=== PATIENT | female | born 1970 | race Caucasian/White ===

== ENCOUNTER 2018-07-19 22:36 | Inpatient (IN) | payer OTHER ==
[~2018-07-19] VITALS: Ht 171.4 cm; Wt 66.1 kg
[2018-07-20 01:03] LABS: HEMATOCRIT 33.2 % (36.0-47.0); HEMOGLOBIN 11.4 g/dl (12.0-15.5); MEAN CORPUSCULAR HEMOGLOBIN 31.8 pg (27.0-33.0); MEAN CORPUSCULAR HGB CONC 34.3 g/dl (32.0-36.5); MEAN CORPUSCULAR VOLUME 92.5 fl (80.0-96.0); PLATELET COUNT, AUTOMATED 200 10^3/uL (150-450); RED BLOOD COUNT 3.59 10^6/uL (4.00-5.40); WHITE BLOOD COUNT 6.5 10^3/uL (4.0-10.0)
[2018-07-20 01:36] LABS: ACETAMINOPHEN LEVEL < 2.0 UG/ML (10.0-30.0); ALBUMIN 3.1 GM/DL (3.2-5.2); ALT/SGPT 24 U/L (12-78); BILIRUBIN,DIRECT < 0.1 MG/DL (0.0-0.2); BILIRUBIN,TOTAL 0.2 MG/DL (0.2-1.0); BLOOD UREA NITROGEN 10 MG/DL (7-18); CALCIUM LEVEL 7.9 MG/DL (8.5-10.1); CARBON DIOXIDE LEVEL 24 MEQ/L (21-32); CHLORIDE LEVEL 107 MEQ/L (98-107); CREATININE FOR GFR 0.49 MG/DL (0.55-1.30); ETHYL ALCOHOL (ETHANOL) 0.079 % (0.000-0.010); GLOMERULAR FILTRATION RATE > 60.0 (>58); GLUCOSE, FASTING 105 MG/DL (70-100); POTASSIUM SERUM 3.1 MEQ/L (3.5-5.1); SALICYLATE LEVEL 3.1 MG/DL (5.0-30.0); SODIUM LEVEL 145 MEQ/L (136-145); TOTAL PROTEIN 6.7 GM/DL (6.4-8.2)
[2018-07-20 02:20] LABS: AMPHETAMINES LEVEL URINE NEGATIVE (NEGATIVE); BARBITURATES URINE NEGATIVE (NEGATIVE); BENZODIAZEPINES URINE NEGATIVE (NEGATIVE); CANNABINOIDS URINE NEGATIVE (NEGATIVE); COCAINE METABOLITE URINE NEGATIVE (NEGATIVE); METHADONE URINE NEGATIVE (NEGATIVE); OPIATES URINE NEGATIVE (NEGATIVE); PHENCYCLIDINE URINE NEGATIVE (NEGATIVE)
[2018-07-20] MEDS ORDERED: CALCIUM CARBONATE 500 MG CHEW U/D PO ONE (02:45)
[2018-07-20] MEDS ORDERED: POTASSIUM CHLORIDE 10 MEQ SR TABLET PO ONE (02:45)
[2018-07-20 04:44] LABS: FREE THYROXINE INDEX 2.6 % (1.3-4.8); T UPTAKE 30 % (30-39); THYROXINE (T4) 8.8 UG/DL (4.5-12.0)
[2018-07-20] MEDS ORDERED: OLANZapine ORAL DISINTEGRATING TAB 5MG PO PRN (13:45)
[2018-07-20] MEDS ORDERED: MOM 30ML SUSPENSION UDC PO PRN (13:45)
[2018-07-20] MEDS ORDERED: ACETAMINOPHEN TAB 650MG DOSE (2X325MG) PO PRN (13:45)
[2018-07-20] MEDS ORDERED: MAALOX 30 ML SUSP *UDC PO PRN (13:45)
[2018-07-20 15:23] VITALS: BP 138/94
--- NOTE | 2018-07-20 19:36 | ECGEPIP ---
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
[2018-07-21 06:47] VITALS: BP 139/81
--- NOTE | 2018-07-21 11:58 | HPEPDOC ---
General Date of Admission July 20, 2018 at 13:33 Date of Service: July 21, 2018 Attending Physician: GARETH MONDRAGON MD Chief Complaint The patient is a 48-year-old female admitted with a reason for visit of Depressive Disorder. History of Present Illness Patient is a 40-year-old female, past medical history significant for hypertension, hypothyroidism, GERD, nicotine dependence, depression, admitted to inpatient psychiatric unit on account of acute depression and suicidal ideation. Patient recently moved from [place] and has been unable to find a job in the area, subsequently started feeling worthless and suicidal. On assessment, she complains of joint pain but otherwise denies chest pain, shortness of breath, weakness, dizziness, abdominal pain, nausea, diarrhea. Home Medications No Active Prescriptions or Reported Meds Allergies Coded Allergies: No Known Allergies (Unverified , 07/19/18) Past Medical History Medical History Hypertension Hypothyroidism GERD Nicotine dependence Depression. Psoriasis Surgical History Vulvectomy LEEP Family History Family history significant for alcohol abuse Social History * Smoker: less than 1 pack/day Alcohol: occationally Drugs: denies A-FIB/CHADSVASC A-FIB History Current/History of A-Fib/PAF?: No Current PO Anticoag Therapy: No Review of Systems Other systems A 10 point pertinent review of systems was completed, negative except as stated in the history of presenting illness Physical Examination Other physical findings GENERAL: NAD SKIN : Psoriatic lesions to bilateral lower extremities, back HEENT: Atraumatic, normocephalic, PERRL, moist mucous membrane CARDIOVASCULAR: Regular rate and rhythm, S1S2, no JVD, no edema, distal pulses + and palpable RESP: CTAB, no accessory muscle use noted ABDOMEN: BS+ non distended non tender MS: kyphotic deformity NEURO: Alert and oriented x 3, CN2-12 grossly intact PSYCH: no anxiety or agitation, appropriate mood and affect. Vital Signs Vital Signs Date Time Temp Pulse Resp B/P (MAP) Pulse Ox O2 Delivery O2 Flow Rate FiO2 07/21/18 06:47 98.1 70 14 139/81 (100) 07/20/18 15:23 98 07/20/18 13:03 Room Air Assessment/Plan Hypertension -Start on lisinopril with monitoring of blood pressure per unit protocol Hypothyroidism -Patient reports hypothyroidism, but not on any medication at this time GERD -Start on proton pump inhibitor Psoriasis -Outpatient follow-up with primary care provider appropriate evaluation and management Suicidal ideation -Management by primary team Nicotine dependence -Management by primary team DVT prophylaxis -Patient is frequently ambulatory Plan / VTE VTE Prophylaxis Ordered?: No VTE Exclusion Mechanical Proph: Low Risk for VTE RENEE PALOMARES July 21, 2018 11:58
[2018-07-21] MEDS: LISINOPRIL 5 MG TAB PO SCH (14:38)
--- NOTE | 2018-07-21 15:39 | MHHPEPDOC ---
General Date Of Admission: July 19, 2018 Legal Status: 9.39 Chief Complaint "I feel depressed because I don't have a job". History of Present Illness HISTORY OF THE PRESENT ILLNESS: Patient is a 48 -year-old , female, who, according to Ed report: "Reason for Referral Pt self presents to ED c/o worsening depression/SI. Chief Complaint [facility], reports she moved to [facility] from [place] to be near family, has had worsening depression for past 6 months. PT states she has a Phd however has been unable to find employment since moving to [facility], also c/o financial px, fears her car will be repossessed soon, has little or no support, states "I'm just done". Pt admits to feeling hopeless and worthless, states "everything has gone to shit", is quite negative about the future, adds "I had things to do today and just couldn't, I give up". Pt reports feeling suicidal, denies any plan currently, admits to 2 prior psych admissions in [place] in past year for depression/SI. Pt denies HI/AH/VH, denies drug use, admits to occasional ETOH. PT c/o erratice sleep and poor concentration, low energy, appears disheveled, feels "humiliated" that she has had to turn to [facility] for assistance, is currently residing in [facility] Hotel.." Psychiatric Review of Systems Depression (2 or more weeks): depressed mood, insomnia/hypersomnia, feelings of worthlesness, decreased energy, difficulty concentrating, appetite changes (sometime she almost felt hungry all the time while she was in [place] and food was scarce), other (hopeless and helpless) Wanda (4 or more days of): irritable/elevated mood, grandiosity, talkativity, pressured, flight of ideas Psychosis: denies PTSD: denies Anxiety: gen/non-specific anxiety, situational anxiety, stressor related anxiety Anxiety/ 6 months or more of: restlessness, keyed up, difficulty concentrating, irritability, sleep disturbance Past Psychiatric History Previous Psychiatric Diagnosis: "Sort of". She says she has been told that she has a "baby bipolar' by one of her [facility] providers Previous Psychiatric Admissions: Yes, three months ago when she was in [place], [place] Suicide Attempts: Denies Psychiatric Follow-up: She didn't f/u after she was released from the hospital in House Psychiatric medications: Paxil Past Medical History Medical Problems GERD, HPV Head Injury: No Seizures: No Hospitalizations: Yes Surgeries: Yes (In 2015 she had a vulvectomy and in 1017 she had an ELEP) Family Medical/Psychiatric HX Medical Problems She thinks her father has some type of early dementia Psychiatric Disorders: Yes (She thinks her mother had some "bipolar or something", she would be screaming and yelling, she was an alcoholic and her father's mother was bipolar) Addiction: Yes (both parents were alcoholics and dad was a smoker) Suicide Attemps/Completions: No Addiction History nicotine, alcohol, other (she says that because she has no money, she hasno't bought alcohol or cigarettes) Social History Childhood: "It was OK, there were no serious problems". She grew up with her parents, went to school. she has a sister who is 6 years younger, she has an older borother and sister. She was bullied in [employer], she hated going to school. At that time they were in [place]. Abuse/Trauma: Bullied in school, mother as verbally abusive Current Living Situation: Lives at [facility] housing Education: She says she has a PHD Employment: Unemployed Social Support: Sister and brother in law Legal: Denies Marital: Was , got , didn't last long. she was 19 when she got to get out of the house. She has a child (female) and has a grandchild (thy live in [place]) Mental Status Examination General Appearance: unkempt, disheveled, ds/not appear stated age (looks older) Build: thin Demeanor: preoccupied Eye Contact: average Activity: anxious Behavior: cooperative, restless Speech: clear, spontaneous, other (talkative) Mood: depressed, anxious, irritable, hypomanic Affect: constricted, appropriate, congruent, anxious Thought Process: logical/linear, circumstantial, flight of ideas, depressed Thought Content (Delusions): grandiose, denies SI, HI, AVH Thought Content (Other): preoccupied, obsessional, ideas of reference Thought Content (Aggressive): none reported Perception (Hallucinations): none reported Perception (Other): none reported Cognition (Impairment of): none reported Cognition(Intelligence Est.): average Oriented: Awake, Alert, Oriented times three Insight: poor Judgment: Poor Psychosis: Denies Diagnoses 1. Unspecified mood disorder, r/o bipolar 2 disorder 2. R/O ETOH abuse A-FIB/CHADSVASC A-FIB History Current/History of A-Fib/PAF?: No Current PO Anticoag Therapy: No Age/Risk Factor Scoring CHADSVASC: CHADSVASC Response (Comments) Value Age Risk Factor Age < 65 years old 0 Gender Risk Factor Female 1 Hx of CHF No 0 Hx of HTN No 0 Hx of Stroke/TIA/or VTE No 0 Hx of Diabetes No 0 Hx of Vascular Disease No 0 Total 1 Treatment Treatment ordered: NONE Reason Anticoagulant not given: Not indicated/[id number] Assessment Patient is a little entitled, she is very talkative, she is circumstantial, she is impulsive, she came from [place] because "benefits are better here", she sya, but she didn't have a job in here or a place to live. She is jobless, she is about to lose her car, because she has no money to make the payments, she has been looking for a job and "they always tell me they have a lot of applicants and i want to know where are these people, did they get the job, why can't i get that job, I have a PhD...." She sems to have bipolar disorder. she says she has been told she was "a baby bipolar" by one of her VA doctors before. She says she has never been on amood stabilizer, only on paxil but once, she was given Abilify and it gave her 'horrible anxiety". She is worried about not being able to pay for this hospitalization and I explained she could be [facility] [place] provided they have beds available. Initial Treatment Plan 1. Patient was admitted on a [9.39] status. 2. Complete history was obtained. 3. With patients permission, family will be contacted and database will be expanded. 4. Patients medication regimen will be reviewed and changed accordingly. 5. Patient will be provided with protected environment. 6. Patient will be treated with individual, group, and milieu therapies. 7. Patient will receive supportive psych-education. 8. Discharge planning will commence immediately. 9. Outpatient follow-up treatment will be strongly recommended. 10. The initial treatment plan will focus initially on: * Depression. * Anxiety * Hypomania * Risk for suicide. * Substance abuse. ESTIMATED LENGTH OF STAY: 5-7 DAYS. TIME SPENT COUNSELING AND COORDINATING INITIAL CARE: 60 minutes. Vital Signs Vital Signs Date Time Temp Pulse Resp B/P (MAP) Pulse Ox O2 Delivery O2 Flow Rate FiO2 07/21/18 06:47 98.1 70 14 139/81 (100) 07/20/18 15:23 98 07/20/18 13:03 Room Air Medications No Active Prescriptions or Reported Meds Allergies Coded Allergies: No Known Allergies (Unverified , 07/19/18) CLARITA AGUILERA MD July 21, 2018 15:39
[2018-07-21] MEDS ORDERED: PILL CUTTER 1 EACH XX PRN (16:15)
[2018-07-21 18:11] VITALS: BP 125/73
[2018-07-21] MEDS ORDERED: QUEtiapine FUMARATE 50 MG TAB PO SCH (21:00)
[2018-07-22 08:25] VITALS: BP 107/76
[2018-07-22] MEDS: LISINOPRIL 5 MG TAB PO SCH (08:25)
[2018-07-22] MEDS ORDERED: PARoxetine 20 MG TAB PO SCH (09:00)
--- NOTE | 2018-07-22 13:13 | IPNPDOC ---
Subjective Date Seen The patient was seen on 07/22/18. Subjective Chief Complaint/HPI Patient is a 40-year-old female, past medical history significant for hypertension, hypothyroidism, GERD, nicotine dependence, depression, admitted to inpatient psychiatric unit on account of acute depression and suicidal ideation. Events since last encounter Has no complaints when seen this am. Denies chest pain, SOB, weakness, Objective Physical Examination Other physical findings SKIN : Warm, dry intact HEENT: Atraumatic, normocephalic, PERRL, moist mucous membrane CARDIOVASCULAR: Regular rate and rhythm, S1S2, no JVD, no edema, distal pulses + and palpable RESP: CTAB, no accessory muscle use noted ABDOMEN: BS+ non distended non tender MS: kyphosis NEURO: Alert and oriented x 3, CN2-12 grossly intact PSYCH: no anxiety or agitation, appropriate mood and affect. Assessment /Plan Assessment Hypertension -continue lisinopril at 2.5mg daily -blood pressure is controlled. Hypothyroidism -TSH elevated at 6.1 -O/P follow up with PCP for management -she will need a repeat TSH prior to initiation of therapy after acute issues stabilized. GERD -Start on proton pump inhibitor Psoriasis -Outpatient follow-up with primary care provider appropriate evaluation and management Suicidal ideation -Management by primary team Nicotine dependence -Management by primary team DVT prophylaxis -Patient is frequently ambulatory Plan/VTE VTE Prophylaxis Ordered?: No VTE Exclusion Mechanical Proph: Low Risk for VTE VS, I&O, 24H, Fishbone Vital Signs/I&O Vital Signs Date Time Temp Pulse Resp B/P (MAP) Pulse Ox O2 Delivery O2 Flow Rate FiO2 07/22/18 08:25 107/76 07/21/18 18:11 98.5 71 16 07/20/18 15:23 98 07/20/18 13:03 Room Air RENEE PALOMARES July 22, 2018 13:13
[2018-07-22 15:45] VITALS: BP 120/75
[2018-07-22] MEDS ORDERED: QUET5TAB PO (18:30)
[2018-07-22] MEDS ORDERED: PARO20TA3 PO (18:30)
[2018-07-23] MEDS ORDERED: LISINOPRIL *2.5 MG* TAB PO SCH (09:00)
--- NOTE | 2018-07-25 20:04 | MHDSPDOC ---
[facility] Discharge Summary Discharge Summary DATE OF ADMISSION: July 20, 2018 at 13:33 DATE OF DISCHARGE: July 22, 2018 at 19:15 DISCHARGE DIAGNOSES: 1. Bipolar 2 disorder 2. ETOH use disorder (in initial remission because she can't afford it) 3. Nicotine use disorder (in initial reemission for the above mentioned reason) REASON FOR ADMISSION: Chief Complaint "I feel depressed because I don't have a job". History of Present Illness HISTORY OF THE PRESENT ILLNESS: Patient is a 48 -year-old , female, who, according to Ed report: "Reason for Referral Pt self presents to ED c/o worsening depression/SI. Chief Complaint Pt brings self to ED [facility], reports she moved to [facility] from [place] to be near family, has had worsening depression for past 6 months. PT states she has a Phd however has been unable to find employment since moving to [facility], also c/o financial px, fears her car will be repossessed soon, has little or no support, states "I'm just done". Pt admits to feeling hopeless and worthless, states "everything has gone to shit", is quite negative about the future, adds "I had things to do today and just couldn't, I give up". Pt reports feeling suicidal, denies any plan currently, admits to 2 prior psych admissions in [place] in past year for depression/SI. Pt denies HI/AH/VH, denies drug use, admits to occasional ETOH. PT c/o erratice sleep and poor concentration, low energy, appears disheveled, feels "humiliated" that she has had to turn to [facility] for assistance, is currently residing in [facility].." CONSULTANTS INVOLVED: None TREATMENT AND PROGRESS ON THE UNIT : The patient reported feeling frustrated bec ause she didn't have a job in this are, she had been placed at a [facility] motel and she she was very worried because she didn't have the money to make the payments for her car. She said she had moved to this area from [place] because she thought that there were more benefits in this area. She had lost her job in [place] and her father had been ill and had to be placed him at a [facility]. She has a sister and a brother in law who live nearby but they have limited resources, slthough they have been emotionally supportive. She came to the hospital, but sh could have gone to [facility], however she felt when could not drive because she has no money for the gas. She felt it could be better for her to leave because she felt she was wasting her time her cr while at the Hospital because she needed to go to the [employer], since she needed to get a job. She wondered why she couldn't get a job in here because she had a PhD although she was very vague when it came to answer what had she mastered her PhD. She was very talkative and very circumstantial. She had a sense of entitlement, when she felt that she was humiliated because she was living at a [facility] apartment and almost immediately she said that she was thankful to have a place to be safe. She said she had been working at the equivalent of [facility] in [place]. I had spoken with her about discharging her on [place] but she thought that we could discharge her ffrom [facility] with medications and after that, she would go to the [facility] [place] and she was told that she could do that on her own, go to [facility], but once discharged from here, she could not be transferred over there (not from [facility]), She was torn beteen being discharged or going to [place] and finally she decided to go to [place] because she said she was not going to be able to afford her medications, to pay them from her own pocket, so, maybe if she went to the [facility] in [place], she could be discharged from there sith scrips for her medications. Late in the afternoon, this card writer hand read on mission planner's note that she had not been accepted, but it was Wednesday and she could not be without medications until Wednesday, when she could go to the VA and request an appointment and maybe get her medications. she was upset and requested to be discharged no matter what because she was becoming more anxious at the Unit because she needed to go out and try to get a job. This card writer hand got in touch with Discharge Planners who reported that she could be discharged and she could have her appointments in [facility] by Wednesday, she was told that the [facility] would pay for her hospitalization if she remianed in [facility] but she refused to do it. She signed for a GIBRAN for Nurse Padmini Schilling to speak with her sister before discharging her, Her sister said she didn't have any concerns about her being discharged. This card writer hand called [facility] in [facility] to inquire inquire about the crespo of Paroxerine 20 mgs (a month supply) and they said it would $4.00 but since I had to send three scripts (not a month supply because with month supply it could be easier to ttempt against her life nd succed in the attempt). They said I could her with three or 4 scripts and every script would be $4.oo, Tow Operator [facility], called to inquire if they had Seroquel and they said they did, so, this card writer hand discharged her with weekly refills too. At the moment of her discharge, the patient was not suicidal, not homicidal and not psychotic, she could contract for safety She had taken Paxil before and she had a good response to it. She had never taken a mood stabilizer, except for Abilify and it had made her very anxious, so, this card writer hand offered her Seroquel, on a low dose at night, that would help her sleep and with mood regulation, as the patient's presentation was that of hypomania and depression. HOSPITAL COURSE: As above DISCHARGE ASSESSMENT: The patient was not homicial, not suicidal and not psychotic at the time of her discharge. she had not reported, not exhibited medication side effects. She was goal orientated, thinking of going to the Job club inquire for some job openings in this area. MENTAL STATUS EXAMINATION ON DISCHARGE: General Appearance: unkempt, disheveled, ds/not appear stated age (looks older) Build: thin Demeanor: preoccupied Eye Contact: average Activity: anxious Behavior: cooperative, restless Speech: clear, spontaneous, other (talkative) Mood: depressed, anxious, irritable, hypomanic Affect: constricted, appropriate, congruent, anxious Thought Process: logical/linear, circumstantial, flight of ideas, depressed Thought Content (Delusions): grandiose, denies SI, HI, AVH Thought Content (Other): preoccupied, obsessional, ideas of reference Thought Content (Aggressive): none reported Perception (Hallucinations): none reported Perception (Other): none reported Cognition (Impairment of): none reported Cognition(Intelligence Est.): average Oriented: Awake, Alert, Oriented times three Insight: poor Judgment: Poor Psychosis: Denies Diagnoses 1. Bipolar 2 disorder 2. ETOH use disorder (in initial remission because she can't afford it) 3. Nicotine use disorder (in initial reemission for the above mentioned reason) MEDICATIONS ON DISCHARGE: Scheduled Paroxetine HCl (Paroxetine HCl) 20 Mg Tablet, 20 MG PO DAILY for depression, #10 Quetiapine Fumarate (Quetiapine Fumarate) 50 Mg Tablet, 50 MG PO QHS for mood, #10 PLAN/FOLLOWUP ARRANGEMENTS: The patient will be established with the [facility] in the [place] The amount of time spent in the coordination of care for this patient was approximately 45 minutes. Vital Signs/I&Os Vital Signs Date Time Temp Pulse Resp B/P (MAP) Pulse Ox O2 Delivery O2 Flow Rate FiO2 07/22/18 15:45 98.4 65 16 120/75 (90) 07/20/18 15:23 98 07/20/18 13:03 Room Air Medications Scheduled Paroxetine HCl (Paroxetine HCl) 20 Mg Tablet, 20 MG PO DAILY for depression, #10 Quetiapine Fumarate (Quetiapine Fumarate) 50 Mg Tablet, 50 MG PO QHS for mood, #10 Allergies Coded Allergies: No Known Allergies (Unverified , 07/19/18) CLARITA AGUILERA MD Jul 24, 2018 17:14
== END 2018-07-22 19:15 | disposition home or self-care (01) | DRG 885 ==
LOC: M ED 22:36 → M ED INP 07-20 13:33 → M PSY 07-20 15:14
PROVIDERS: ADMIT Psychiatry & Neurology Psychiatry; ATTEND Psychiatry & Neurology Psychiatry
DX: F31.81 Bipolar II disorder (principal); F10.10 Alcohol abuse, uncomplicated; F17.210 Nicotine dependence, cigarettes, uncomplicated; Z62.811 Personal history of psychological abuse in childhood; Z81.1 Family history of alcohol abuse and dependence; Z81.8 Family history of other mental and behavioral disorders; I10 Essential (primary) hypertension; E03.9 Hypothyroidism, unspecified; K21.9 Gastro-esophageal reflux disease without esophagitis; L40.9 Psoriasis, unspecified; Z56.0 Unemployment, unspecified

== ENCOUNTER 2019-01-08 18:30 | Emergency (ER) | payer OTHER ==
[~2019-01-08] VITALS: Ht 172.7 cm; Wt 76.4 kg
[~2019-01-08 18:30] MED LIST: PARO20TA3 PO; QUET5TAB PO
[2019-01-08] MEDS ORDERED: OMEP10CASR PO (19:07)
[2019-01-08] MEDS ORDERED: LEVO50TA5 PO (19:07)
[2019-01-08] MEDS ORDERED: LISI-538 PO (19:07)
[2019-01-08] MEDS ORDERED: NS 1,000 ML IV ONE (19:30)
--- NOTE | 2019-01-08 20:01 | REPVR ---
PROCEDURE INFORMATION: Exam: CT Head Without Contrast Exam date and time: 01/08/2019 7:28 PM Clinical history: 48 years old, female; Condition or disease; Other: ? Overdose; Additional info: Drug overdose TECHNIQUE: Imaging protocol: Computed tomography of the head without contrast. Radiation optimization: All CT scans at this facility use at least one of these dose optimization techniques: automated exposure control; mA and/or kV adjustment per patient size (includes targeted exams where dose is matched to clinical indication); or iterative reconstruction. COMPARISON: No relevant prior studies available. FINDINGS: Brain: There is an mild parenchymal volume loss atypical for patient age. White matter changes are demonstrated in the subcortical, centrum semiovale and periventricular white matter consistent with age related small vessel white matter angiopathic gliosis. Ventricles: Normal. No ventriculomegaly. Bones/joints: Unremarkable. No acute fracture. Sinuses: Visualized sinuses are unremarkable. No fluid levels. Mastoid air cells: Visualized mastoid air cells are well aerated. Soft tissues: Unremarkable. IMPRESSION: 1. There is an mild parenchymal volume loss atypical for patient age. White matter changes are demonstrated in the subcortical, centrum semiovale and periventricular white matter consistent with age related small vessel white matter angiopathic gliosis. 2. No acute findings. Electronically signed by: Pelon Crain On 01/08/2019 20:01:08 PM
[2019-01-08 20:10] LABS: BASO # 0.1 10^3/uL (0.0-0.2); BASO % 1.6 % (0.0-1.0); EOS # 0.4 10^3/uL (0.0-0.5); EOS % 5.6 % (0.0-3.0); HEMATOCRIT 40.1 % (36.0-47.0); LYMPH # 3.6 10^3/uL (1.5-5.0); LYMPH % 47.9 % (24.0-44.0); MEAN CORPUSCULAR HEMOGLOBIN 30.2 pg (27.0-33.0); MEAN CORPUSCULAR HGB CONC 32.4 g/dl (32.0-36.5); MEAN CORPUSCULAR VOLUME 93.3 fl (80.0-96.0); MONO # 0.6 10^3/uL (0.0-0.8); MONO % 7.4 % (0.0-5.0); NEUTROPHILS # 2.8 10^3/uL (1.5-8.5); NEUTROPHILS % 37.2 % (36.0-66.0); PLATELET COUNT, AUTOMATED 227 10^3/uL (150-450); WHITE BLOOD COUNT 7.6 10^3/uL (4.0-10.0)
[2019-01-08 20:27] LABS: AMPHETAMINES LEVEL URINE NEGATIVE (NEGATIVE); BARBITURATES URINE NEGATIVE (NEGATIVE); BENZODIAZEPINES URINE NEGATIVE (NEGATIVE); CANNABINOIDS URINE NEGATIVE (NEGATIVE); COCAINE METABOLITE URINE NEGATIVE (NEGATIVE); METHADONE URINE NEGATIVE (NEGATIVE); OPIATES URINE NEGATIVE (NEGATIVE); PHENCYCLIDINE URINE NEGATIVE (NEGATIVE)
[2019-01-08 20:46] LABS: ACETAMINOPHEN LEVEL < 2.0 UG/ML (10.0-30.0); ALBUMIN 3.6 GM/DL (3.2-5.2); ALT/SGPT 25 U/L (12-78); BILIRUBIN,DIRECT 0.1 MG/DL (0.0-0.2); BILIRUBIN,TOTAL 0.7 MG/DL (0.2-1.0); BLOOD UREA NITROGEN 12 MG/DL (7-18); CARBON DIOXIDE LEVEL 29 MEQ/L (21-32); CHLORIDE LEVEL 112 MEQ/L (98-107); CPK CREATINE PHOSPHOKINASE 109 U/L (26-192); CREATININE FOR GFR 0.67 MG/DL (0.55-1.30); ETHYL ALCOHOL (ETHANOL) 0.278 % (0.000-0.010); GLOMERULAR FILTRATION RATE > 60.0 (>58); GLUCOSE, FASTING 90 MG/DL (70-100); POTASSIUM SERUM 3.4 MEQ/L (3.5-5.1); SALICYLATE LEVEL 2.6 MG/DL (5.0-30.0); SODIUM LEVEL 147 MEQ/L (136-145); TOTAL PROTEIN 7.5 GM/DL (6.4-8.2)
[2019-01-08] MEDS ORDERED: MULTIVITAMIN -ADULT INJECTION 10 ML, THIAMINE INJection 100 MG, FOLIC ACID 1 MG in NS 1... IV ONE (22:00)
[2019-01-08 23:15] VITALS: BP 105/70
--- NOTE | 2019-01-09 17:58 | ECGEPIP ---
- ED Test Date: 2019-01-08 Pat Name: KAREN DANIEL Department: Room: - Gender: Female [employer] Frame Builder: [facility] : 1970 Requested By: HOLLY WAGNER PA-C. Order Number: [id number] Reading MD: Sue Boston Measurements Intervals [place] Rate: 65 P: 28 MD: 193 QRS: 57 QRSD: 101 T: 59 QT: 414 QTc: 431 Interpretive Statements SINUS RHYTHM DECREASED RATE/QTC COMPARED 07/20/18 Electronically Signed on 01-09-2019 17:58:52 EST by Sue Boston
== END 2019-01-08 23:35 | disposition home or self-care (01) ==
LOC: M ED 18:30
DX: F10.229 Alcohol dependence with intoxication, unspecified (principal); I10 Essential (primary) hypertension; K21.9 Gastro-esophageal reflux disease without esophagitis; F33.9 Major depressive disorder, recurrent, unspecified; F41.9 Anxiety disorder, unspecified; Z79.899 Other long term (current) drug therapy; F17.210 Nicotine dependence, cigarettes, uncomplicated
CPT/HCPCS: 70450; 80048; 80076; 80307; 82550; 83605; 84443; 85025; 93005; 96360; 96361; 99284; G0480; J3411

== ENCOUNTER → 2019-03-23 | Outpatient (CLI) | payer OTHER ==
[~2019-03-23] MED LIST changes: +LEVO50TA5 PO; +LISI-538 PO; +OMEP10CASR PO
--- NOTE | 2019-04-04 09:09 | REPMRS ---
Patient History The patient states she had a clinical breast exam in 12/2019. Patient is postmenopausal. No known family history of cancer. No Hormone Replacement Therapy Digital Woman Screen Mammo: March 23, 2019 - Exam #: [id number] Bilateral CC and MLO view(s) were taken. Technologist: Kimberli Oneal, Technologist Prior study comparison: 2014, bilateral digital mammo screening bilat, performed at [facility]. June 19, 2013, bilateral digital woman screen mammo, performed at [facility]. FINDINGS: There are scattered fibroglandular densities. There has been no change in the appearance of the mammogram from the prior studies. There is a mild amount of scattered fibroglandular density which is fairly symmetric. There is no interval development of dominant mass, architectural distortion, or grouped microcalcification suggestive of malignancy. 3-D tomosynthesis shows no additional findings. Assessment: BI-RADS/ACR category 1 mammogram. Negative Mammogram. Recommendation Routine screening mammogram of both breasts in 1 year (for women over age 40). This patient's Lifetime Breast Cancer Risk is estimated at 7.6 %. This mammogram was interpreted with the aid of an FDA-approved computer-aided dectection system. Electronically Signed By: Yo Valerio MD 04/04/19 0909
== END ==
LOC: M WHC 15:16
PROVIDERS: ATTEND Nurse Practitioner Family
DX: Z12.31 Encounter for screening mammogram for malignant neoplasm of breast (principal); Z78.0 Asymptomatic menopausal state

== ENCOUNTER → 2019-04-03 | Outpatient (CLI) | payer SELFPAY | LOC: M OUTALCOH 08:12 | PROVIDERS: ATTEND Psychiatry & Neurology Addiction Medicine | DX: F10.20 Alcohol dependence, uncomplicated (principal) ==

== ENCOUNTER 2019-04-20 10:00 | Outpatient (RCR) | payer MEDICAID, SELFPAY | END 2019-04-22 | LOC: M OUTALCOH 10:00 | PROVIDERS: ATTEND Psychiatry & Neurology Addiction Medicine | DX: F10.20 Alcohol dependence, uncomplicated (principal); F17.200 Nicotine dependence, unspecified, uncomplicated ==

== ENCOUNTER 2019-05-19 09:00 | Outpatient (RCR) | payer MEDICAID, SELFPAY | END 2019-05-23 | LOC: M OUTALCOH 09:00 | PROVIDERS: ATTEND Psychiatry & Neurology Addiction Medicine | DX: F10.20 Alcohol dependence, uncomplicated (principal); F17.200 Nicotine dependence, unspecified, uncomplicated ==

== ENCOUNTER 2019-06-20 11:00 | Outpatient (RCR) | payer MEDICAID | END 2019-06-22 | LOC: M OUTALCOH 11:00 | PROVIDERS: ATTEND Psychiatry & Neurology Addiction Medicine | DX: F10.20 Alcohol dependence, uncomplicated (principal); F17.200 Nicotine dependence, unspecified, uncomplicated ==

== ENCOUNTER 2019-07-20 09:00 | Outpatient (RCR) | payer MEDICAID | END 2019-07-23 | LOC: M OUTALCOH 09:00 | PROVIDERS: ATTEND Psychiatry & Neurology Addiction Medicine | DX: F10.20 Alcohol dependence, uncomplicated (principal); F17.200 Nicotine dependence, unspecified, uncomplicated ==

== ENCOUNTER 2019-08-21 13:00 | Outpatient (RCR) | payer MEDICAID | END 2019-08-22 | LOC: M OUTALCOH 13:00 | PROVIDERS: ATTEND Psychiatry & Neurology Addiction Medicine | DX: F10.20 Alcohol dependence, uncomplicated (principal); F17.200 Nicotine dependence, unspecified, uncomplicated ==

== ENCOUNTER → 2019-09-22 | Outpatient (RCR) | payer OTHER, MEDICAID | LOC: M OUTALCOH 08-24 10:34 | PROVIDERS: ATTEND Psychiatry & Neurology Addiction Medicine | DX: F10.20 Alcohol dependence, uncomplicated (principal); F17.200 Nicotine dependence, unspecified, uncomplicated ==

== ENCOUNTER 2019-10-20 14:55 | Outpatient (RCR) | payer MEDICAID, OTHER | END 2019-10-23 | LOC: M OUTALCOH 14:55 | PROVIDERS: ATTEND Psychiatry & Neurology Addiction Medicine | DX: F10.20 Alcohol dependence, uncomplicated (principal); F17.200 Nicotine dependence, unspecified, uncomplicated ==

== ENCOUNTER 2019-11-17 14:38 | Outpatient (RCR) | payer MEDICAID, OTHER | END 2019-11-22 | LOC: M OUTALCOH 14:38 | PROVIDERS: ATTEND Psychiatry & Neurology Addiction Medicine | DX: F10.20 Alcohol dependence, uncomplicated (principal); F17.200 Nicotine dependence, unspecified, uncomplicated ==

== ENCOUNTER 2019-12-22 09:00 | Outpatient (RCR) | payer MEDICAID | END 2019-12-23 | LOC: M OUTALCOH 09:00 | PROVIDERS: ATTEND Psychiatry & Neurology Addiction Medicine | DX: F10.20 Alcohol dependence, uncomplicated (principal); F17.200 Nicotine dependence, unspecified, uncomplicated ==

== ENCOUNTER 2020-01-17 11:00 | Outpatient (RCR) | payer MEDICAID | END 2020-01-22 | LOC: M OUTALCOH 11:00 | PROVIDERS: ATTEND Psychiatry & Neurology Addiction Medicine | DX: F10.20 Alcohol dependence, uncomplicated (principal); F17.200 Nicotine dependence, unspecified, uncomplicated ==

== ENCOUNTER → 2020-02-15 | Outpatient (REF) | payer MEDICAID | LOC: M LAB REF 13:04 | PROVIDERS: ATTEND Physician Assistant | DX: N89.9 Noninflammatory disorder of vagina, unspecified (principal) ==

== ENCOUNTER 2020-02-21 10:00 | Outpatient (RCR) | payer MEDICAID | END 2020-02-22 | LOC: M OUTALCOH 10:00 | PROVIDERS: ATTEND Psychiatry & Neurology Addiction Medicine | DX: F10.20 Alcohol dependence, uncomplicated (principal); F17.200 Nicotine dependence, unspecified, uncomplicated ==

== ENCOUNTER → 2020-03-05 | Outpatient (CLI) | payer SELFPAY | LOC: M LABSMTC 12:44 | PROVIDERS: ATTEND Pediatrics | DX: Z20.822 Contact with and (suspected) exposure to COVID-19 (principal) ==

== ENCOUNTER 2020-03-15 10:00 | Outpatient (RCR) | payer MEDICAID | END 2020-03-24 | LOC: M OUTALCOH 10:00 | PROVIDERS: ATTEND Psychiatry & Neurology Addiction Medicine | DX: F10.20 Alcohol dependence, uncomplicated (principal); F17.200 Nicotine dependence, unspecified, uncomplicated ==

== ENCOUNTER 2020-04-12 10:45 | Outpatient (RCR) | payer MEDICAID ==
[~2020-04-12 10:45] MED LIST changes: -LISI-538 PO; +LISI20TA33 PO; +QUET50TA3 PO; -QUET5TAB PO
== END 2020-04-21 ==
LOC: M OUTALCOH 10:45
PROVIDERS: ATTEND Psychiatry & Neurology Psychiatry
DX: F10.20 Alcohol dependence, uncomplicated (principal); F17.200 Nicotine dependence, unspecified, uncomplicated

== ENCOUNTER 2020-05-17 11:15 | Outpatient (RCR) | payer MEDICAID, OTHER | END 2020-05-22 | LOC: M OUTALCOH 11:15 | PROVIDERS: ATTEND Psychiatry & Neurology Psychiatry | DX: F10.20 Alcohol dependence, uncomplicated (principal); F17.200 Nicotine dependence, unspecified, uncomplicated ==

== ENCOUNTER 2020-06-14 11:00 | Outpatient (RCR) | payer MEDICAID | END 2020-06-21 | LOC: M OUTALCOH 11:00 | PROVIDERS: ATTEND Psychiatry & Neurology Psychiatry | DX: F10.20 Alcohol dependence, uncomplicated (principal); F17.200 Nicotine dependence, unspecified, uncomplicated ==

== ENCOUNTER 2020-07-19 10:00 | Outpatient (RCR) | payer MEDICAID, OTHER | END 2020-07-22 | LOC: M OUTALCOH 10:00 | PROVIDERS: ATTEND Psychiatry & Neurology Psychiatry | DX: F10.20 Alcohol dependence, uncomplicated (principal); F17.200 Nicotine dependence, unspecified, uncomplicated ==

== ENCOUNTER → 2020-07-24 | Outpatient (CLI) | payer MEDICAID | LOC: M PLALAB 10:05 | PROVIDERS: ATTEND Psychiatry & Neurology Psychiatry | DX: F10.20 Alcohol dependence, uncomplicated (principal) ==

== ENCOUNTER 2020-08-16 10:00 | Outpatient (RCR) | payer MEDICAID | END 2020-08-21 | LOC: M OUTALCOH 10:00 | PROVIDERS: ATTEND Psychiatry & Neurology Psychiatry | DX: F10.20 Alcohol dependence, uncomplicated (principal); F17.200 Nicotine dependence, unspecified, uncomplicated ==

== ENCOUNTER 2020-09-20 10:00 | Outpatient (RCR) | payer MEDICAID, OTHER | END 2020-09-21 | LOC: M OUTALCOH 10:00 | PROVIDERS: ATTEND Psychiatry & Neurology Psychiatry | DX: F10.20 Alcohol dependence, uncomplicated (principal); F17.200 Nicotine dependence, unspecified, uncomplicated ==

== ENCOUNTER 2020-10-11 10:00 | Outpatient (RCR) | payer MEDICAID ==
[~2020-10-11 10:00] MED LIST changes: -QUET50TA3 PO; +QUET50TA4 PO
== END 2020-10-22 ==
LOC: M OUTALCOH 10:00
PROVIDERS: ATTEND Psychiatry & Neurology Psychiatry
DX: F10.20 Alcohol dependence, uncomplicated (principal); F17.200 Nicotine dependence, unspecified, uncomplicated

== ENCOUNTER 2020-11-15 10:00 | Outpatient (RCR) | payer MEDICAID | END 2020-11-21 | LOC: M OUTALCOH 10:00 | PROVIDERS: ATTEND Psychiatry & Neurology Psychiatry | DX: F10.20 Alcohol dependence, uncomplicated (principal); F17.200 Nicotine dependence, unspecified, uncomplicated ==

== ENCOUNTER → 2020-12-03 | Outpatient (CLI) | payer MEDICAID | LOC: M PLALAB 09:32 | PROVIDERS: ATTEND Psychiatry & Neurology Psychiatry | DX: F10.20 Alcohol dependence, uncomplicated (principal) ==

== ENCOUNTER 2020-12-17 09:41 | Outpatient (RCR) | payer MEDICAID | END 2020-12-22 | LOC: M OUTALCOH 09:41 | PROVIDERS: ATTEND Psychiatry & Neurology Psychiatry | DX: F10.20 Alcohol dependence, uncomplicated (principal); F17.200 Nicotine dependence, unspecified, uncomplicated ==

== ENCOUNTER → 2021-01-21 | Outpatient (RCR) | payer MEDICAID | LOC: M OUTALCOH 12-27 11:43 | PROVIDERS: ATTEND Psychiatry & Neurology Psychiatry | DX: F10.20 Alcohol dependence, uncomplicated (principal); F17.200 Nicotine dependence, unspecified, uncomplicated ==

== ENCOUNTER 2021-02-19 09:51 | Outpatient (RCR) | payer MEDICAID | END 2021-02-21 | LOC: M OUTALCOH 09:51 | PROVIDERS: ATTEND Psychiatry & Neurology Psychiatry | DX: F10.20 Alcohol dependence, uncomplicated (principal); F17.200 Nicotine dependence, unspecified, uncomplicated ==

== ENCOUNTER 2021-03-14 09:41 | Outpatient (RCR) | payer MEDICAID | END 2021-03-24 | LOC: M OUTALCOH 09:41 | PROVIDERS: ATTEND Psychiatry & Neurology Psychiatry | DX: F10.20 Alcohol dependence, uncomplicated (principal); F17.200 Nicotine dependence, unspecified, uncomplicated ==

== ENCOUNTER 2021-04-08 09:51 | Outpatient (RCR) | payer MEDICAID | END 2021-04-21 | LOC: M OUTALCOH 09:51 | PROVIDERS: ATTEND Psychiatry & Neurology Psychiatry | DX: F10.20 Alcohol dependence, uncomplicated (principal); F17.200 Nicotine dependence, unspecified, uncomplicated ==

== ENCOUNTER → 2021-05-06 | Outpatient (CLI) | payer MEDICAID | LOC: M OUTALCOH 09:47 | PROVIDERS: ATTEND Psychiatry & Neurology Psychiatry | DX: F10.20 Alcohol dependence, uncomplicated (principal) ==

== ENCOUNTER → 2021-06-17 | Outpatient (CLI) | payer OTHER | LOC: M WHC 12:53 | PROVIDERS: ATTEND Nurse Practitioner Family | DX: Z12.31 Encounter for screening mammogram for malignant neoplasm of breast (principal); R92.8 Other abnormal and inconclusive findings on diagnostic imaging of breast ==

== ENCOUNTER → 2021-06-25 | Outpatient (CLI) | payer OTHER | LOC: M WHC 12:49 | PROVIDERS: ATTEND Nurse Practitioner Family | DX: R92.8 Other abnormal and inconclusive findings on diagnostic imaging of breast (principal) | CPT/HCPCS: 77065; G0279 ==